=== PATIENT | male | born 1955 | race Caucasian/White ===

== ENCOUNTER 2022-03-18 20:37 | Inpatient (IN) | payer BC, MEDICARE ==
[2022-03-18] MEDS ORDERED: Sodium Chloride 0.9% 10 ML Syringe FLUSH PRN (20:56)
[2022-03-18 21:32] LABS: ESTIMATED GFR 55 mL/min (>60)
[2022-03-18] MEDS ORDERED: Melatonin 3 MG Tab PO PRN (22:17)
[2022-03-18] MEDS ORDERED: Ondansetron 4 MG Tab.DIS PO PRN (22:17)
[2022-03-18] MEDS ORDERED: Pantoprazole 40 MG Vial IV SCH (22:17)
[2022-03-18] MEDS ORDERED: Allopurinol 100 MG Tab PO SCH (22:17)
[2022-03-18] MEDS ORDERED: Docusate Sodium 100 MG Cap PO PRN (22:17)
[2022-03-18] MEDS ORDERED: Acetaminophen 325 MG Tab PO PRN (22:17)
[2022-03-18] MEDS ORDERED: Bisacodyl 5 MG Tab PO PRN (22:17)
[2022-03-18] MEDS: Acetaminophen/HYDROcodone 325-5 MG Tab PO PRN (23:00)
[2022-03-18] MEDS: Dextrose 5%-Lactated Ringers 1,000 ML IV SCH (23:04)
[2022-03-19] MEDS: Acetaminophen/HYDROcodone 325-5 MG Tab PO PRN ×3 (03:14→15:18)
[2022-03-19] MEDS: Dextrose 5%-Lactated Ringers 1,000 ML IV SCH ×2 (07:09→15:15)
[2022-03-19] MEDS: Levothyroxine 50 MCG Tab PO SCH (09:14)
[2022-03-19] MEDS: amLODIPine 5 MG Tab PO SCH (09:52)
[2022-03-19] MEDS: Hydrochlorothiazide 25 MG Tab PO SCH (09:54)
[2022-03-19] MEDS: Losartan 50 MG Tab PO SCH (09:54)
[2022-03-19] MEDS: Metoprolol Succinate 50 MG Tab.ER PO SCH (09:54)
[2022-03-19] MEDS ORDERED: Bupivacaine 0.5%/EPINEPHrine 1:200,000 50 ML MDV ONE (14:51)
[2022-03-19] MEDS ORDERED: fentaNYL 100 MCG/2 ML SDV ONE (15:36)
[2022-03-19] MEDS ORDERED: Propofol 200 MG/20 ML SDV ONE (15:36)
[2022-03-19] MEDS ORDERED: Midazolam 1 MG/ML 2 ML SDV ONE ×2 (15:36→16:26)
[2022-03-19] MEDS ORDERED: ceFAZolin 1 GM Vial ONE ×2 (16:12)
[2022-03-19] MEDS ORDERED: Sodium Chloride 0.9% 10 ML ONE (16:46)
[2022-03-19] MEDS ORDERED: Phenylephrine 1% 10 MG/ML SDV ONE (16:46)
[2022-03-19] MEDS: Acetaminophen 325 MG Tab PO SCH ×2 (18:18→23:30)
[2022-03-19] MEDS: Cyclobenzaprine 10 MG Tab PO PRN (20:46)
[2022-03-19] MEDS: oxyCODONE 5 MG Tab PO PRN (20:46)
[2022-03-19] MEDS: Allopurinol 100 MG Tab PO SCH (20:48)
[2022-03-19] MEDS: Pantoprazole 40 MG Tab.CR PO SCH (20:48)
[2022-03-19] MEDS: HYDROmorphone 1 MG/ML Syringe IVPUSH PRN (21:33)
[2022-03-20] MEDS: HYDROmorphone 1 MG/ML Syringe IVPUSH PRN (03:20)
[2022-03-20] MEDS: Dextrose 5%-Lactated Ringers 1,000 ML IV SCH (04:12)
[2022-03-20] MEDS: Acetaminophen 325 MG Tab PO SCH ×5 (06:33→22:00)
[2022-03-20] MEDS: Levothyroxine 50 MCG Tab PO SCH (08:00)
[2022-03-20] MEDS: oxyCODONE 5 MG Tab PO PRN ×2 (08:00→12:16)
[2022-03-20] MEDS: Losartan 50 MG Tab PO SCH (09:31)
[2022-03-20] MEDS: amLODIPine 5 MG Tab PO SCH (09:31)
[2022-03-20] MEDS: Hydrochlorothiazide 25 MG Tab PO SCH (09:32)
[2022-03-20] MEDS: Metoprolol Succinate 50 MG Tab.ER PO SCH (09:37)
[2022-03-20] MEDS: traMADol 50 MG Tab PO PRN ×2 (13:24→18:13)
[2022-03-20] MEDS: Cyclobenzaprine 10 MG Tab PO PRN (19:43)
[2022-03-20] MEDS: Pantoprazole 40 MG Tab.CR PO SCH (20:10)
[2022-03-20] MEDS: Allopurinol 100 MG Tab PO SCH (20:10)
[2022-03-21] MEDS: Acetaminophen 325 MG Tab PO SCH ×2 (05:12→09:57)
[2022-03-21] MEDS: traMADol 50 MG Tab PO PRN (05:16)
[2022-03-21] MEDS: Cyclobenzaprine 10 MG Tab PO PRN (05:17)
[2022-03-21] MEDS: Levothyroxine 50 MCG Tab PO SCH (07:10)
[2022-03-21] MEDS: oxyCODONE 5 MG Tab PO PRN ×2 (08:28→12:50)
[2022-03-21] MEDS: Losartan 50 MG Tab PO SCH (08:29)
[2022-03-21] MEDS: amLODIPine 5 MG Tab PO SCH (08:29)
[2022-03-21] MEDS: Metoprolol Succinate 50 MG Tab.ER PO SCH (08:29)
[2022-03-21] MEDS: Hydrochlorothiazide 25 MG Tab PO SCH (08:30)
== END 2022-03-21 13:00 | DRG 482 ==
LOC: JP.ED 20:37 → JP.ICU 21:32
PROVIDERS: ADMIT Hospitalist; ATTEND Internal Medicine
PROC: 0QS636Z Reposition Right Upper Femur with Intramedullary Internal Fixation Device, Percutaneous Approach (ICD-10-PCS; principal; 2022-03-19)
DX: S72.001A Fracture of unspecified part of neck of right femur, initial encounter for closed fracture (principal); M1A.0210 Idiopathic chronic gout, right elbow, without tophus (tophi); E03.9 Hypothyroidism, unspecified; I10 Essential (primary) hypertension; F10.20 Alcohol dependence, uncomplicated; Z20.822 Contact with and (suspected) exposure to COVID-19; Z79.890 Hormone replacement therapy; Z79.899 Other long term (current) drug therapy; W10.9XXA Fall (on) (from) unspecified stairs and steps, initial encounter; Y92.008 Other place in unspecified non-institutional (private) residence as the place of occurrence of the external cause
CPT/HCPCS: 36415; 73502; 80053; 84443; 85025; 85610; 85730; 93005; U0002; 76000; 80048; 85018; 85027; 90662; 97110-GP; 97162-GP; 97530-GP; 99285; A9270-GY; C1776; C9113; G0008; J0690; J1170; J2250; J2370; J2704; J3010; J3490; J7121; Q0162

== ENCOUNTER 2022-05-31 11:48 | Inpatient (IN) | payer MEDICARE ==
[2022-05-31 12:47] LABS: ESTIMATED GFR 25 mL/min (>60)
[2022-05-31] MEDS ORDERED: Sodium Chloride 0.9% 1,000 ML IV SCH (13:15)
[2022-05-31 15:13] LABS: CORONAVIRUS COVID-19 NAA NEGATIVE (NEGATIVE)
[2022-05-31] MEDS ORDERED: Melatonin 3 MG Tab PO PRN (15:36)
[2022-05-31] MEDS ORDERED: Acetaminophen 325 MG Tab PO PRN (15:36)
[2022-05-31] MEDS ORDERED: Magnesium Hydroxide 400 MG/5 ML Susp 30 ML Cup PO PRN (15:36)
[2022-05-31] MEDS ORDERED: Ondansetron 4 MG Tab.DIS PO PRN (15:36)
[2022-05-31] MEDS ORDERED: Ondansetron 4 MG/2 ML SDV IV PRN (15:36)
[2022-06-01] MEDS: Levothyroxine 50 MCG Tab PO SCH (07:42)
[2022-06-01] MEDS: Pantoprazole 40 MG Tab.CR PO SCH (07:42)
[2022-06-01] MEDS ORDERED: Non-Formulary Medication 1 Each (Levothyroxine Sodium [Levothyroxine] 50 MCG Capsule) PO SCH (09:00)
[2022-06-01] MEDS: Aspirin 81 MG Tab.EC PO SCH (09:41)
[2022-06-02] MEDS: Aspirin 81 MG Tab.EC PO SCH (08:07)
[2022-06-02] MEDS: Levothyroxine 50 MCG Tab PO SCH (08:07)
[2022-06-02] MEDS: Pantoprazole 40 MG Tab.CR PO SCH (08:07)
[2022-06-03] MEDS ORDERED: Allopurinol 100 MG Tab PO SCH (10:00)
== END 2022-06-02 11:05 | disposition home or self-care (01) | DRG 312 ==
LOC: JP.ED 11:48 → JP.MS 14:14
PROVIDERS: ADMIT Internal Medicine; ATTEND Internal Medicine
DX: I95.2 Hypotension due to drugs (principal); N17.9 Acute kidney failure, unspecified; T46.5X5A Adverse effect of other antihypertensive drugs, initial encounter; I95.9 Hypotension, unspecified; E86.0 Dehydration; Z20.822 Contact with and (suspected) exposure to COVID-19; I10 Essential (primary) hypertension; E03.9 Hypothyroidism, unspecified; Z79.82 Long term (current) use of aspirin; M10.9 Gout, unspecified; Z79.890 Hormone replacement therapy; Z90.49 Acquired absence of other specified parts of digestive tract; F12.90 Cannabis use, unspecified, uncomplicated; Z79.899 Other long term (current) drug therapy
CPT/HCPCS: 0241U; 36415; 80048; 80053; 81001; 84443; 85025; 93010; 96360; 96361; 99222; 99232; 99238; 99284; 99285-25; A9270-GY; J7030

== ENCOUNTER 2022-10-29 10:55 | Emergency (ER) | payer MEDICARE ==
[2022-10-29] MEDS ORDERED: Ondansetron 4 MG/2 ML SDV IVPUSH ONE (11:30)
[2022-10-29] MEDS ORDERED: Sodium Chloride 0.9% 10 ML Syringe FLUSH PRN (11:30)
[2022-10-29] MEDS ORDERED: Sodium Chloride 0.9% 1,000 ML IV ONE (11:30)
[2022-10-29 11:49] LABS: BASOPHILS ABSOLUTE AUTO 0.03 K/uL (0.00-0.10); BASOPHILS PERCENT AUTO 0.4 % (0.1-1.3); EOSINOPHILS ABSOLUTE AUTO 0.03 K/uL (0.00-0.40); EOSINOPHILS PERCENT AUTO 0.4 % (0.0-5.4); HEMOGLOBIN 15.2 g/dL (12.9-16.9); IMMATURE GRAN PERCENT AUTO 0.3 % (0.0-0.7); LYMPHOCYTES PERCENT AUTO 30.9 % (11.4-47.7); MEAN CORPUSCULAR HEMOGLOBIN 36.4 pg (31.6-35.5); MEAN CORPUSCULAR HGB CONC 36.2 g/dL (31.6-35.5); MEAN CORPUSCULAR VOLUME 100.5 fL (81.4-99.0); MONOCYTES ABSOLUTE AUTO 0.59 K/uL (0.20-0.90); MONOCYTES PERCENT AUTO 7.9 % (3.3-12.6); NEUTROPHILS ABSOLUTE AUTO 4.48 K/uL (1.0-7.6); NEUTROPHILS PERCENT AUTO 60.1 % (40.0-78.1); PLATELET COUNT,PLT 156 K/uL (130-375); RED BLOOD CELL COUNT 4.18 M/uL (4.14-5.76); WHITE BLOOD CELL COUNT,WBC 7.5 K/uL (3.2-11.0)
[2022-10-29 11:51] LABS: IMMATURE GRAN ABSOLUTE AUTO 0.02 K/uL (0.00-0.23)
[2022-10-29 12:09] LABS: A/G RATIO 0.9 (1.2-2.2); ALANINE AMINOTRANSFERASE,ALT 98 U/L (12-78); ALBUMIN 2.9 g/dL (3.4-5.0); ALKALINE PHOSPHATASE 160 U/L (46-116); ASPARTATE AMNIOTRANSFERASE,AST 138 U/L (15-37); BILIRUBIN TOTAL 2.2 mg/dL (0.2-1.0); BLOOD UREA NITROGEN,BUN 11 mg/dL (7-18); CALCIUM 8.8 mg/dL (8.5-10.1); CARBON DIOXIDE,CO2 17 mmol/L (21-32); CHLORIDE,CL 98 mmol/L (100-108); CREATININE 1.3 mg/dL (0.8-1.3); EST CRCL DRUG DOSING (CG) 55.14 mL/min; ESTIMATED GFR 60 mL/min (>60); GLUCOSE RANDOM 73 mg/dL (74-106); POTASSIUM,K 3.4 mmol/L (3.6-5.2); PROTEIN TOTAL,TP 6.1 g/dL (6.4-8.2); SODIUM,NA 135 mmol/L (140-148)
[2022-10-29 12:10] LABS: ANION GAP 23.4 mmol/L (5.0-14.0)
[2022-10-29] MEDS ORDERED: Sodium Chloride 0.9% 10 ML SDV FLUSH ONE (13:12)
[2022-10-29] MEDS ORDERED: Iopamidol 612 MG/ML 100 ML Bottle IV PRN (13:12)
[2022-10-29] MEDS ORDERED: Sodium Chloride 0.9% 100 ML IV SCH (13:15)
== END 2022-10-29 15:15 | disposition home or self-care (01) ==
LOC: JP.ED 10:55
DX: R11.2 Nausea with vomiting, unspecified (principal); I10 Essential (primary) hypertension; M10.9 Gout, unspecified; E03.9 Hypothyroidism, unspecified; Z79.899 Other long term (current) drug therapy
CPT/HCPCS: 36415; 74177; 80053; 83690; 85025; 86140; 96361; 96374; 99284; J2405; J3490; J7030; Q9967

== ENCOUNTER 2022-11-28 08:58 | Emergency (ER) | payer MEDICARE ==
[2022-11-28] MEDS ORDERED: Sodium Chloride 0.9% 1,000 ML IV ONE (09:14)
[2022-11-28 09:37] LABS: BASE EXCESS VENOUS -8.2 mm/L; BICARBONATE,VENOUS 15.8 mmol/L; CARBOXYHEMOGLOBIN 2.7 % (0.0-1.6); HEMOGLOBIN 10.3 g/dL (12.9-16.9); MEAN CORPUSCULAR HEMOGLOBIN 34.4 pg (31.6-35.5); MEAN CORPUSCULAR HGB CONC 34.3 g/dL (31.6-35.5); MEAN CORPUSCULAR VOLUME 100.3 fL (81.4-99.0); METHEMOGLOBIN 0.9 %; O2 SATURATION VENOUS 49.5; OXYHEMOGLOBIN 47.7 %; PH,VENOUS 7.356 (7.350-7.450); RED BLOOD CELL COUNT 2.99 M/uL (4.14-5.76); TOTAL HEMOGLOBIN 10.8 g/dL (13.5-18.0); WHITE BLOOD CELL COUNT,WBC 5.2 K/uL (3.2-11.0)
[2022-11-28 09:39] LABS: PO2 VENOUS 30.7 mm/Hg
[2022-11-28] MEDS ORDERED: Sodium Chloride 0.9% 1,000 ML IV SCH (10:00)
[2022-11-28 10:09] LABS: A/G RATIO 1.1 (1.2-2.2); ALANINE AMINOTRANSFERASE,ALT 40 U/L (12-78); ALBUMIN 2.5 g/dL (3.4-5.0); ALKALINE PHOSPHATASE 97 U/L (46-116); ASPARTATE AMNIOTRANSFERASE,AST 53 U/L (15-37); BILIRUBIN TOTAL 1.6 mg/dL (0.2-1.0); BLOOD UREA NITROGEN,BUN 8 mg/dL (7-18); CALCIUM 8.2 mg/dL (8.5-10.1); CARBON DIOXIDE,CO2 20 mmol/L (21-32); CHLORIDE,CL 104 mmol/L (100-108); CREATININE 1.2 mg/dL (0.8-1.3); EST CRCL DRUG DOSING (CG) 57.49 mL/min; ESTIMATED GFR 66 mL/min (>60); GLUCOSE RANDOM 67 mg/dL (74-106); POTASSIUM,K 3.7 mmol/L (3.6-5.2); PROTEIN TOTAL,TP 4.8 g/dL (6.4-8.2); SODIUM,NA 139 mmol/L (140-148)
[2022-11-28 10:13] LABS: ANION GAP 18.7 mmol/L (5.0-14.0)
== END 2022-11-28 11:35 | disposition home or self-care (01) ==
LOC: JP.ED 08:58
DX: E86.0 Dehydration (principal); I10 Essential (primary) hypertension; E03.9 Hypothyroidism, unspecified; R00.0 Tachycardia, unspecified; Z79.899 Other long term (current) drug therapy
CPT/HCPCS: 36415; 71045; 80053; 80307; 82803; 83605; 83690; 84145; 84443; 84484; 85027; 93005; 96360; 96361; 99284; J7030; 93010

== ENCOUNTER 2022-12-08 21:14 | Emergency (ER) | payer MEDICARE ==
[2022-12-08 21:27] LABS: BASOPHILS ABSOLUTE AUTO 0.03 K/uL (0.00-0.10); BASOPHILS PERCENT AUTO 0.5 % (0.1-1.3); EOSINOPHILS ABSOLUTE AUTO 0.13 K/uL (0.00-0.40); EOSINOPHILS PERCENT AUTO 2.1 % (0.0-5.4); HEMATOCRIT 29.1 % (38.4-49.7); HEMOGLOBIN 10.1 g/dL (12.9-16.9); IMMATURE GRAN ABSOLUTE AUTO 0.02 K/uL (0.00-0.23); IMMATURE GRAN PERCENT AUTO 0.3 % (0.0-0.7); LYMPHOCYTES PERCENT AUTO 26.3 % (11.4-47.7); MEAN CORPUSCULAR HEMOGLOBIN 33.9 pg (31.6-35.5); MEAN CORPUSCULAR HGB CONC 34.7 g/dL (31.6-35.5); MEAN CORPUSCULAR VOLUME 97.7 fL (81.4-99.0); MONOCYTES ABSOLUTE AUTO 0.62 K/uL (0.20-0.90); MONOCYTES PERCENT AUTO 10.2 % (3.3-12.6); NEUTROPHILS ABSOLUTE AUTO 3.69 K/uL (1.0-7.6); NEUTROPHILS PERCENT AUTO 60.6 % (40.0-78.1); PLATELET COUNT,PLT 136 K/uL (130-375); RED BLOOD CELL COUNT 2.98 M/uL (4.14-5.76); WHITE BLOOD CELL COUNT,WBC 6.1 K/uL (3.2-11.0)
[2022-12-08] MEDS ORDERED: Sodium Chloride 0.9% 1,000 ML IV SCH ×2 (21:45→23:00)
[2022-12-08 21:51] LABS: ALANINE AMINOTRANSFERASE,ALT 29 U/L (12-78); ALBUMIN 2.4 g/dL (3.4-5.0); ALKALINE PHOSPHATASE 125 U/L (46-116); ASPARTATE AMNIOTRANSFERASE,AST 38 U/L (15-37); BILIRUBIN TOTAL 1.5 mg/dL (0.2-1.0); BLOOD UREA NITROGEN,BUN 10 mg/dL (7-18); CALCIUM 8.1 mg/dL (8.5-10.1); CARBON DIOXIDE,CO2 26 mmol/L (21-32); CHLORIDE,CL 105 mmol/L (100-108); CREATININE 1.4 mg/dL (0.8-1.3); EST CRCL DRUG DOSING (CG) 49.27 mL/min; ESTIMATED GFR 55 mL/min (>60); GLUCOSE RANDOM 96 mg/dL (74-106); POTASSIUM,K 3.2 mmol/L (3.6-5.2); PROTEIN TOTAL,TP 4.9 g/dL (6.4-8.2); SODIUM,NA 141 mmol/L (140-148); TROPONIN I HIGH SENSITIVITY 12.4 pg/mL (<=60.3)
[2022-12-08 21:52] LABS: ANION GAP 13.2 mmol/L (5.0-14.0)
[2022-12-08] MEDS ORDERED: Potassium Chloride 20 MEQ Tab.ER PO ONE (21:55)
== END 2022-12-09 00:23 | disposition home or self-care (01) ==
LOC: JP.ED 21:14
DX: R55 Syncope and collapse (principal); E86.0 Dehydration; N28.9 Disorder of kidney and ureter, unspecified; E87.6 Hypokalemia; I95.9 Hypotension, unspecified; E03.9 Hypothyroidism, unspecified; Z20.822 Contact with and (suspected) exposure to COVID-19
CPT/HCPCS: 36415; 80053; 84443; 84484; 85025; 86140; 93005; 93010; 96360; 99284; A9270; J7030; U0002

== ENCOUNTER 2023-03-28 15:50 | Emergency (ER) | payer MEDICARE ==
[2023-03-28 16:12] LABS: BASOPHILS ABSOLUTE AUTO 0.03 K/uL (0.00-0.10); BASOPHILS PERCENT AUTO 0.6 % (0.1-1.3); EOSINOPHILS ABSOLUTE AUTO 0.04 K/uL (0.00-0.40); EOSINOPHILS PERCENT AUTO 0.7 % (0.0-5.4); HEMATOCRIT 24.9 % (38.4-49.7); HEMOGLOBIN 8.5 g/dL (12.9-16.9); IMMATURE GRAN PERCENT AUTO 0.4 % (0.0-0.7); LYMPHOCYTES ABSOLUTE AUTO 1.61 K/uL (0.8-3.3); MEAN CORPUSCULAR HEMOGLOBIN 33.6 pg (31.6-35.5); MEAN CORPUSCULAR HGB CONC 34.1 g/dL (31.6-35.5); MEAN CORPUSCULAR VOLUME 98.4 fL (81.4-99.0); MONOCYTES ABSOLUTE AUTO 0.47 K/uL (0.20-0.90); MONOCYTES PERCENT AUTO 8.8 % (3.3-12.6); NEUTROPHILS ABSOLUTE AUTO 3.19 K/uL (1.0-7.6); NEUTROPHILS PERCENT AUTO 59.5 % (40.0-78.1); PLATELET COUNT,PLT 168 K/uL (130-375); RED BLOOD CELL COUNT 2.53 M/uL (4.14-5.76); WHITE BLOOD CELL COUNT,WBC 5.4 K/uL (3.2-11.0)
[2023-03-28 16:14] LABS: IMMATURE GRAN ABSOLUTE AUTO 0.02 K/uL (0.00-0.23)
[2023-03-28 16:35] LABS: ALANINE AMINOTRANSFERASE,ALT 47 U/L (12-78); ALBUMIN 2.1 g/dL (3.4-5.0); ALKALINE PHOSPHATASE 107 U/L (46-116); ANION GAP 11.7 mmol/L (5.0-14.0); ASPARTATE AMNIOTRANSFERASE,AST 71 U/L (15-37); BILIRUBIN TOTAL 1.4 mg/dL (0.2-1.0); BLOOD UREA NITROGEN,BUN 6 mg/dL (7-18); CALCIUM 7.7 mg/dL (8.5-10.1); CARBON DIOXIDE,CO2 22 mmol/L (21-32); CHLORIDE,CL 106 mmol/L (100-108); CREATININE 0.9 mg/dL (0.8-1.3); ESTIMATED GFR 94 mL/min (>60); GLUCOSE RANDOM 100 mg/dL (74-106); POTASSIUM,K 3.8 mmol/L (3.6-5.2); PROTEIN TOTAL,TP 4.3 g/dL (6.4-8.2); SODIUM,NA 140 mmol/L (140-148)
[2023-03-28 17:28] LABS: TSH ULTRASENSITIVE 0.024 uIU/mL (0.358-3.740)
[2023-03-28 17:34] LABS: MAGNESIUM 1.1 mg/dL (1.8-2.4)
[2023-03-28] MEDS ORDERED: Sodium Chloride 0.9% 1,000 ML IV ONE (17:34)
[2023-03-28 20:17] LABS: APPEARANCE,URINE CLEAR (CLEAR); BILIRUBIN,URINE NEGATIVE (NEGATIVE); COLOR,URINE YELLOW (YELLOW); GLUCOSE,URINE NEGATIVE (NEGATIVE); KETONES,URINE NEGATIVE (NEGATIVE); LEUKOCYTE ESTERASE,URINE NEGATIVE (NEGATIVE); NITRITE,URINE NEGATIVE (NEGATIVE); OCCULT BLOOD,URINE NEGATIVE (NEGATIVE); PROTEIN,URINE NEGATIVE (NEGATIVE)
[2023-03-28 20:20] LABS: AMPHETAMINES SCREEN, URINE NEGATIVE (NEGATIVE); BARBITURATE SCREEN,URINE NEGATIVE (NEGATIVE); BENZODIAZEPINES SCREEN,URINE NEGATIVE (NEGATIVE); METHAMPHETAMINES SCREEN, URINE NEGATIVE (NEGATIVE)
[2023-03-28 20:21] LABS: METHADONE SCREEN, URINE NEGATIVE (NEGATIVE); OXYCODONE SCREEN,URINE NEGATIVE (NEGATIVE); PROPOXYPHENE SCREEN,URINE NEGATIVE (NEGATIVE); THC SCREEN,URINE 50 NG/ML PRESUMPTIVE POSITIVE (NEGATIVE)
[2023-03-28 20:22] LABS: AMORPHOUS SEDIMENT,URINE NOT SEEN; BACTERIA,URINE RARE; EPITHELIAL CELLS,URINE RARE; MUCUS,URINE RARE; RBC,URINE 0-5 (0-5); WBC,URINE 0-5 (0-5)
== END 2023-03-29 09:42 | disposition home or self-care (01) ==
LOC: JP.ED 15:50
DX: E86.0 Dehydration (principal); D64.9 Anemia, unspecified; I10 Essential (primary) hypertension; K21.9 Gastro-esophageal reflux disease without esophagitis; E03.9 Hypothyroidism, unspecified; Z86.16 Personal history of COVID-19; M10.9 Gout, unspecified; Z79.899 Other long term (current) drug therapy
CPT/HCPCS: 36415; 71045; 80053; 80305; 80307; 81001; 83605; 83690; 83735; 83880; 84145; 84443; 84484; 85025; 93005; 96360; 99285; J7030

== ENCOUNTER 2023-04-22 09:19 | Emergency (ER) | payer MEDICARE ==
[2023-04-22 10:08] LABS: BASOPHILS PERCENT AUTO 0.1 % (0.1-1.3); EOSINOPHILS PERCENT AUTO 0.1 % (0.0-5.4); HEMATOCRIT 30.4 % (38.4-49.7); HEMOGLOBIN 10.7 g/dL (12.9-16.9); IMMATURE GRAN ABSOLUTE AUTO 0.07 K/uL (0.00-0.23); IMMATURE GRAN PERCENT AUTO 0.5 % (0.0-0.7); LYMPHOCYTES ABSOLUTE AUTO 1.66 K/uL (0.8-3.3); LYMPHOCYTES PERCENT AUTO 11.7 % (11.4-47.7); MEAN CORPUSCULAR HEMOGLOBIN 32.8 pg (31.6-35.5); MEAN CORPUSCULAR HGB CONC 35.2 g/dL (31.6-35.5); MEAN CORPUSCULAR VOLUME 93.3 fL (81.4-99.0); MONOCYTES ABSOLUTE AUTO 0.77 K/uL (0.20-0.90); MONOCYTES PERCENT AUTO 5.4 % (3.3-12.6); NEUTROPHILS ABSOLUTE AUTO 11.68 K/uL (1.0-7.6); NEUTROPHILS PERCENT AUTO 82.2 % (40.0-78.1); PLATELET COUNT,PLT 173 K/uL (130-375); RED BLOOD CELL COUNT 3.26 M/uL (4.14-5.76); WHITE BLOOD CELL COUNT,WBC 14.2 K/uL (3.2-11.0)
[2023-04-22] MEDS: Sodium Chloride 0.9% 1,000 ML IV SCH ×2 (10:08→13:56)
[2023-04-22 10:13] LABS: A/G RATIO 0.5 (1.2-2.2); ALANINE AMINOTRANSFERASE,ALT 32 U/L (12-78); ALBUMIN 1.8 g/dL (3.4-5.0); ALKALINE PHOSPHATASE 212 U/L (46-116); ASPARTATE AMNIOTRANSFERASE,AST 84 U/L (15-37); BILIRUBIN TOTAL 1.7 mg/dL (0.2-1.0); BLOOD UREA NITROGEN,BUN 19 mg/dL (7-18); CALCIUM 7.1 mg/dL (8.5-10.1); CARBON DIOXIDE,CO2 24 mmol/L (21-32); CHLORIDE,CL 103 mmol/L (100-108); CREATININE 1.1 mg/dL (0.8-1.3); EST CRCL DRUG DOSING (CG) 54.35 mL/min; ESTIMATED GFR 74 mL/min (>60); GLUCOSE RANDOM 72 mg/dL (74-106); POTASSIUM,K 3.6 mmol/L (3.6-5.2); PROTEIN TOTAL,TP 5.5 g/dL (6.4-8.2); SODIUM,NA 138 mmol/L (140-148)
[2023-04-22 10:16] LABS: ANION GAP 14.6 mmol/L (5.0-14.0)
[2023-04-22 10:17] LABS: BASOPHILS ABSOLUTE AUTO 0.02 K/uL (0.00-0.10); EOSINOPHILS ABSOLUTE AUTO 0.02 K/uL (0.00-0.40)
[2023-04-22] MEDS ORDERED: Iopamidol 612 MG/ML 100 ML Bottle IV ONE (12:28)
[2023-04-22] MEDS ORDERED: Sodium Chloride 0.9% 80 ML IV SCH (12:30)
[2023-04-22] MEDS ORDERED: Sodium Chloride 0.9% 1,000 ML IV SCH (13:00)
[2023-04-22 15:25] LABS: APPEARANCE,URINE CLOUDY (CLEAR); BILIRUBIN,URINE SMALL (NEGATIVE); COLOR,URINE YELLOW (YELLOW); GLUCOSE,URINE NEGATIVE (NEGATIVE); KETONES,URINE NEGATIVE (NEGATIVE); LEUKOCYTE ESTERASE,URINE MODERATE (NEGATIVE); NITRITE,URINE POSITIVE (NEGATIVE); OCCULT BLOOD,URINE SMALL (NEGATIVE); PROTEIN,URINE 100 mg/dL (NEGATIVE)
[2023-04-22 15:32] LABS: AMORPHOUS SEDIMENT,URINE NOT SEEN; BACTERIA,URINE MODERATE; EPITHELIAL CELLS,URINE RARE; MUCUS,URINE NOT SEEN; RBC,URINE 0-5 (0-5); WBC,URINE >100 (0-5)
[2023-04-22] MEDS ORDERED: cefTRIAXone 2 GM in Sodium Chloride 0.9% 50 ML IV ONE (16:21)
== END 2023-04-22 18:36 ==
LOC: JP.ED 09:19
DX: E86.0 Dehydration (principal); I82.3 Embolism and thrombosis of renal vein; R18.8 Other ascites; I10 Essential (primary) hypertension; K21.9 Gastro-esophageal reflux disease without esophagitis; Z90.49 Acquired absence of other specified parts of digestive tract; Z86.16 Personal history of COVID-19; Z79.899 Other long term (current) drug therapy
CPT/HCPCS: 36415; 71045; 74177; 80053; 81001; 82272; 83605; 84443; 85025; 86140; 87040; 87086; 87088; 87186; 87493; 96361; 96365; 99285; J0696; J3490; J7030; Q9967

== ENCOUNTER 2023-06-04 15:18 | Inpatient (IN) | payer MEDICARE ==
[2023-06-04 15:34] LABS: BASOPHILS ABSOLUTE AUTO 0.03 K/uL (0.00-0.10); BASOPHILS PERCENT AUTO 0.3 % (0.1-1.3); EOSINOPHILS ABSOLUTE AUTO 0.04 K/uL (0.00-0.40); EOSINOPHILS PERCENT AUTO 0.4 % (0.0-5.4); HEMATOCRIT 33.2 % (38.4-49.7); HEMOGLOBIN 10.9 g/dL (12.9-16.9); IMMATURE GRAN PERCENT AUTO 0.2 % (0.0-0.7); LYMPHOCYTES ABSOLUTE AUTO 2.38 K/uL (0.8-3.3); LYMPHOCYTES PERCENT AUTO 25.1 % (11.4-47.7); MEAN CORPUSCULAR HEMOGLOBIN 31.1 pg (31.6-35.5); MEAN CORPUSCULAR HGB CONC 32.8 g/dL (31.6-35.5); MEAN CORPUSCULAR VOLUME 94.9 fL (81.4-99.0); MONOCYTES ABSOLUTE AUTO 0.59 K/uL (0.20-0.90); MONOCYTES PERCENT AUTO 6.2 % (3.3-12.6); NEUTROPHILS ABSOLUTE AUTO 6.43 K/uL (1.0-7.6); NEUTROPHILS PERCENT AUTO 67.8 % (40.0-78.1); PLATELET COUNT,PLT 167 K/uL (130-375); WHITE BLOOD CELL COUNT,WBC 9.5 K/uL (3.2-11.0)
[2023-06-04 15:37] LABS: IMMATURE GRAN ABSOLUTE AUTO 0.02 K/uL (0.00-0.23)
[2023-06-04 15:50] LABS: LACTIC ACID 2.6 mmol/L (0.4-2.0)
[2023-06-04 15:53] LABS: A/G RATIO 0.5 (1.2-2.2); ALANINE AMINOTRANSFERASE,ALT 24 U/L (12-78); ALBUMIN 1.7 g/dL (3.4-5.0); ALKALINE PHOSPHATASE 123 U/L (46-116); ASPARTATE AMNIOTRANSFERASE,AST 51 U/L (15-37); BILIRUBIN TOTAL 0.6 mg/dL (0.2-1.0); BLOOD UREA NITROGEN,BUN 9 mg/dL (7-18); C-REACTIVE PROTEIN 3.86 mg/dL (<0.50); CALCIUM 7.3 mg/dL (8.5-10.1); CARBON DIOXIDE,CO2 24 mmol/L (21-32); CHLORIDE,CL 104 mmol/L (100-108); CREATININE 1.2 mg/dL (0.8-1.3); EST CRCL DRUG DOSING (CG) 58.92 mL/min; ESTIMATED GFR 66 mL/min (>60); GLUCOSE RANDOM 88 mg/dL (74-106)
[2023-06-04 15:57] LABS: ANION GAP 17.7 mmol/L (5.0-14.0); SODIUM,NA 143 mmol/L (140-148)
[2023-06-04 15:58] LABS: POTASSIUM,K 2.7 mmol/L (3.6-5.2)
[2023-06-04] MEDS: Sodium Chloride 0.9% 10 ML Syringe FLUSH PRN (16:17)
[2023-06-04] MEDS: Potassium Chloride 20 MEQ Tab.ER PO ONE (16:28)
[2023-06-04] MEDS: Potassium Chloride 10 MEQ in Premix Bag 1 BAG IV ONE ×2 (16:30→17:18)
[2023-06-04 17:06] LABS: CORONAVIRUS COVID-19 NAA NEGATIVE (NEGATIVE); INFLUENZA A NAA NEGATIVE (NEGATIVE); INFLUENZA B NAA NEGATIVE (NEGATIVE); RESPIRATORY SYNCYTIAL VIR NAA NEGATIVE (NEGATIVE)
[2023-06-04] MEDS: Doxycycline 100 MG Cap PO SCH (17:18)
[2023-06-04] MEDS: cefTRIAXone 2 GM in Sodium Chloride 0.9% 50 ML IV ONE (17:19)
[2023-06-04] MEDS: Magnesium Sulfate/Water 2 GM in Premix Bag 1 BAG IV ONE (17:57)
[2023-06-04] MEDS ORDERED: Cyclobenzaprine 10 MG Tab PO PRN (18:43)
[2023-06-04] MEDS ORDERED: LORazepam 2 MG/ML SDV IVPUSH PRN (18:44)
[2023-06-04] MEDS ORDERED: Magnesium Hydroxide 400 MG/5 ML Susp 30 ML Cup PO PRN (18:44)
[2023-06-04] MEDS ORDERED: Sennosides/Docusate Sodium 50-8.6 MG Tab PO PRN (18:44)
[2023-06-04] MEDS ORDERED: Acetaminophen 325 MG Tab PO PRN (18:44)
[2023-06-04] MEDS ORDERED: FLU (Fluad Quad) 2023-24(65UP)/MF59C/PF 60 MCG/0.5 ML Syringe IM ONE (20:00)
[2023-06-05 00:04] LABS: APPEARANCE,URINE CLOUDY (CLEAR); BILIRUBIN,URINE SMALL (NEGATIVE); COLOR,URINE BROWN (YELLOW); GLUCOSE,URINE NEGATIVE (NEGATIVE); KETONES,URINE NEGATIVE (NEGATIVE); LEUKOCYTE ESTERASE,URINE SMALL (NEGATIVE); NITRITE,URINE POSITIVE (NEGATIVE); OCCULT BLOOD,URINE MODERATE (NEGATIVE); PROTEIN,URINE 100 mg/dL (NEGATIVE); UROBILINOGEN,URINE 0.2 EU/dL (0.2-1.0)
[2023-06-05 00:06] LABS: WBC,URINE PACKED (0-5)
[2023-06-05 05:51] LABS: HEMATOCRIT 30.6 % (38.4-49.7); MEAN CORPUSCULAR HEMOGLOBIN 30.9 pg (31.6-35.5); MEAN CORPUSCULAR HGB CONC 32.7 g/dL (31.6-35.5); MEAN CORPUSCULAR VOLUME 94.4 fL (81.4-99.0); RED BLOOD CELL COUNT 3.24 M/uL (4.14-5.76); WHITE BLOOD CELL COUNT,WBC 9.1 K/uL (3.2-11.0)
[2023-06-05 06:04] LABS: A/G RATIO 0.5 (1.2-2.2); ALANINE AMINOTRANSFERASE,ALT 22 U/L (12-78); ALBUMIN 1.6 g/dL (3.4-5.0); ALKALINE PHOSPHATASE 113 U/L (46-116); ASPARTATE AMNIOTRANSFERASE,AST 47 U/L (15-37); BILIRUBIN TOTAL 0.5 mg/dL (0.2-1.0); BLOOD UREA NITROGEN,BUN 9 mg/dL (7-18); C-REACTIVE PROTEIN 3.95 mg/dL (<0.50); CALCIUM 7.2 mg/dL (8.5-10.1); CARBON DIOXIDE,CO2 24 mmol/L (21-32); CHLORIDE,CL 110 mmol/L (100-108); CREATININE 1.1 mg/dL (0.8-1.3); EST CRCL DRUG DOSING (CG) 64.27 mL/min; ESTIMATED GFR 73 mL/min (>60); GLUCOSE RANDOM 85 mg/dL (74-106); POTASSIUM,K 3.1 mmol/L (3.6-5.2); PROTEIN TOTAL,TP 4.7 g/dL (6.4-8.2); SODIUM,NA 144 mmol/L (140-148)
[2023-06-05 06:09] LABS: ANION GAP 13.1 mmol/L (5.0-14.0)
[2023-06-05] MEDS: Pantoprazole 40 MG Tab.CR PO SCH (07:49)
[2023-06-05] MEDS: Levothyroxine 50 MCG Tab PO SCH (07:50)
[2023-06-05] MEDS: Enoxaparin 40 MG/0.4 ML Syringe SUBCUT SCH (08:52)
[2023-06-05] MEDS: Allopurinol 100 MG Tab PO SCH (08:52)
[2023-06-05] MEDS: cefTRIAXone 2 GM in Sodium Chloride 0.9% 50 ML IV SCH (08:52)
[2023-06-05] MEDS: Losartan 50 MG Tab PO SCH (08:55)
[2023-06-05] MEDS: amLODIPine 5 MG Tab PO SCH (08:56)
[2023-06-05] MEDS ORDERED: Doxycycline 100 MG in Sodium Chloride 0.9% 100 ML IV SCH (09:00)
[2023-06-05] MEDS: Doxycycline 100 MG in Sodium Chloride 0.9% 100 ML IV SCH (17:28)
[2023-06-05] MEDS: Magnesium Sulfate/Water 2 GM in Premix Bag 1 BAG IV ONE (18:41)
[2023-06-05] MEDS: Potassium Chloride 20 MEQ Tab.ER PO SCH (19:54)
[2023-06-06 06:21] LABS: HEMATOCRIT 29.5 % (38.4-49.7); MEAN CORPUSCULAR HEMOGLOBIN 31.6 pg (31.6-35.5); MEAN CORPUSCULAR HGB CONC 33.9 g/dL (31.6-35.5); MEAN CORPUSCULAR VOLUME 93.4 fL (81.4-99.0); RED BLOOD CELL COUNT 3.16 M/uL (4.14-5.76); WHITE BLOOD CELL COUNT,WBC 7.4 K/uL (3.2-11.0)
[2023-06-06 06:46] LABS: A/G RATIO 0.5 (1.2-2.2); ALANINE AMINOTRANSFERASE,ALT 24 U/L (12-78); ALBUMIN 1.7 g/dL (3.4-5.0); ALKALINE PHOSPHATASE 144 U/L (46-116); ASPARTATE AMNIOTRANSFERASE,AST 54 U/L (15-37); BILIRUBIN TOTAL 0.3 mg/dL (0.2-1.0); BLOOD UREA NITROGEN,BUN 9 mg/dL (7-18); CALCIUM 7.2 mg/dL (8.5-10.1); CARBON DIOXIDE,CO2 23 mmol/L (21-32); CHLORIDE,CL 109 mmol/L (100-108); ESTIMATED GFR 82 mL/min (>60); GLUCOSE RANDOM 70 mg/dL (74-106); POTASSIUM,K 3.8 mmol/L (3.6-5.2); PROTEIN TOTAL,TP 4.9 g/dL (6.4-8.2); SODIUM,NA 142 mmol/L (140-148); TSH ULTRASENSITIVE 10.999 uIU/mL (0.358-3.740)
[2023-06-06 06:49] LABS: ANION GAP 13.8 mmol/L (5.0-14.0)
[2023-06-06] MEDS: Furosemide 20 MG/2 ML VIAL IVPUSH SCH (09:03)
[2023-06-06] MEDS: FLU (Fluad Quad) 2023-24(65UP)/MF59C/PF 60 MCG/0.5 ML Syringe IM ONE (10:22)
[2023-06-07 05:45] LABS: HEMATOCRIT 29.2 % (38.4-49.7); HEMOGLOBIN 9.6 g/dL (12.9-16.9); MEAN CORPUSCULAR HEMOGLOBIN 30.9 pg (31.6-35.5); MEAN CORPUSCULAR HGB CONC 32.9 g/dL (31.6-35.5); MEAN CORPUSCULAR VOLUME 93.9 fL (81.4-99.0); RED BLOOD CELL COUNT 3.11 M/uL (4.14-5.76); WHITE BLOOD CELL COUNT,WBC 6.5 K/uL (3.2-11.0)
[2023-06-07 06:16] LABS: A/G RATIO 0.5 (1.2-2.2); ALANINE AMINOTRANSFERASE,ALT 26 U/L (12-78); ALBUMIN 1.7 g/dL (3.4-5.0); ALKALINE PHOSPHATASE 148 U/L (46-116); ASPARTATE AMNIOTRANSFERASE,AST 58 U/L (15-37); BILIRUBIN TOTAL 0.4 mg/dL (0.2-1.0); BLOOD UREA NITROGEN,BUN 9 mg/dL (7-18); C-REACTIVE PROTEIN 3.68 mg/dL (<0.50); CALCIUM 7.5 mg/dL (8.5-10.1); CARBON DIOXIDE,CO2 23 mmol/L (21-32); CHLORIDE,CL 110 mmol/L (100-108); ESTIMATED GFR 82 mL/min (>60); GLUCOSE RANDOM 65 mg/dL (74-106); MAGNESIUM 1.3 mg/dL (1.8-2.4); POTASSIUM,K 4.6 mmol/L (3.6-5.2); PRO B-TYPE NATRIUR PEPT,BNPPRO 1317 pg/mL (5-125); SODIUM,NA 142 mmol/L (140-148)
[2023-06-07 06:18] LABS: ANION GAP 13.6 mmol/L (5.0-14.0)
[2023-06-07] MEDS: Levothyroxine 100 MCG Tab PO SCH (08:37)
[2023-06-07] MEDS: Magnesium Sulfate/Water 2 GM in Premix Bag 1 BAG IV ONE (09:54)
[2023-06-07] MEDS: Acetaminophen/HYDROcodone 325-5 MG Tab PO PRN (16:38)
[2023-06-08 06:04] LABS: HEMATOCRIT 28.1 % (38.4-49.7); HEMOGLOBIN 9.2 g/dL (12.9-16.9); MEAN CORPUSCULAR HEMOGLOBIN 30.8 pg (31.6-35.5); MEAN CORPUSCULAR HGB CONC 32.7 g/dL (31.6-35.5); RED BLOOD CELL COUNT 2.99 M/uL (4.14-5.76); WHITE BLOOD CELL COUNT,WBC 5.9 K/uL (3.2-11.0)
[2023-06-08 06:28] LABS: A/G RATIO 0.5 (1.2-2.2); ALANINE AMINOTRANSFERASE,ALT 30 U/L (12-78); ALBUMIN 1.6 g/dL (3.4-5.0); ALKALINE PHOSPHATASE 155 U/L (46-116); ASPARTATE AMNIOTRANSFERASE,AST 62 U/L (15-37); BILIRUBIN TOTAL 0.3 mg/dL (0.2-1.0); BLOOD UREA NITROGEN,BUN 9 mg/dL (7-18); C-REACTIVE PROTEIN 3.09 mg/dL (<0.50); CALCIUM 7.7 mg/dL (8.5-10.1); CARBON DIOXIDE,CO2 23 mmol/L (21-32); CHLORIDE,CL 107 mmol/L (100-108); CREATININE 0.9 mg/dL (0.8-1.3); EST CRCL DRUG DOSING (CG) 78.56 mL/min; ESTIMATED GFR 93 mL/min (>60); GLUCOSE RANDOM 67 mg/dL (74-106); POTASSIUM,K 4.9 mmol/L (3.6-5.2); PRO B-TYPE NATRIUR PEPT,BNPPRO 1487 pg/mL (5-125); PROTEIN TOTAL,TP 4.9 g/dL (6.4-8.2); SODIUM,NA 137 mmol/L (140-148)
[2023-06-08 06:30] LABS: ANION GAP 11.9 mmol/L (5.0-14.0)
[2023-06-08] MEDS: Albumin Human 25 GM in Premix Bag 1 BAG IV ONE (12:16)
[2023-06-09] MEDS: Sodium Chloride 0.9% 500 ML IV ONE (23:57)
[2023-06-11] MEDS: Ondansetron 4 MG Tab.DIS PO PRN (06:45)
[2023-06-12 05:31] LABS: HEMATOCRIT 23.9 % (38.4-49.7); HEMOGLOBIN 8.2 g/dL (12.9-16.9); MEAN CORPUSCULAR HEMOGLOBIN 31.3 pg (31.6-35.5); MEAN CORPUSCULAR HGB CONC 34.3 g/dL (31.6-35.5); MEAN CORPUSCULAR VOLUME 91.2 fL (81.4-99.0); RED BLOOD CELL COUNT 2.62 M/uL (4.14-5.76); WHITE BLOOD CELL COUNT,WBC 4.3 K/uL (3.2-11.0)
[2023-06-12 05:43] LABS: CALCIUM 7.7 mg/dL (8.5-10.1); EST CRCL DRUG DOSING (CG) 70.7 mL/min; POTASSIUM,K 4.5 mmol/L (3.6-5.2)
[2023-06-12 05:48] LABS: ANION GAP 8.5 mmol/L (5.0-14.0)
== END 2023-06-14 13:25 | disposition home health service (06) | DRG 194 ==
LOC: JP.ED 15:18 → JP.MS 17:57
PROVIDERS: ADMIT Hospitalist; ATTEND Internal Medicine
DX: J18.9 Pneumonia, unspecified organism (principal); C84.48 Peripheral T-cell lymphoma, not elsewhere classified, lymph nodes of multiple sites; J90 Pleural effusion, not elsewhere classified; R18.0 Malignant ascites; E87.6 Hypokalemia; I10 Essential (primary) hypertension; R06.02 Shortness of breath; E03.9 Hypothyroidism, unspecified; K21.9 Gastro-esophageal reflux disease without esophagitis; Z86.16 Personal history of COVID-19; M10.9 Gout, unspecified; H91.90 Unspecified hearing loss, unspecified ear; M19.90 Unspecified osteoarthritis, unspecified site; E83.42 Hypomagnesemia; R62.7 Adult failure to thrive; Z79.890 Hormone replacement therapy; Z98.890 Other specified postprocedural states; Z79.899 Other long term (current) drug therapy; Z90.49 Acquired absence of other specified parts of digestive tract; Z87.891 Personal history of nicotine dependence
CPT/HCPCS: 0241U; 36415; 71045; 71045-26; 76705; 76705-26; 80048; 80053; 81001; 83605; 83735; 83880; 84145; 84443; 85025; 85027; 86140; 87086; 90694; 93005; 93010; 96365; 96366; 97110-GP; 97161-GP; 97165-GO; 97530-GP; 97535-GO; 99285; 99285-25; A9270-GY; C8929; J0696; J1650; J1940; J3475; J3480; J3490; J7040; P9047; Q0162

== ENCOUNTER 2023-10-15 08:01 | Emergency (ER) | payer MEDICARE ==
[2023-10-15 08:59] LABS: BASOPHILS PERCENT AUTO 0.2 % (0.1-1.3); EOSINOPHILS ABSOLUTE AUTO 0.03 K/uL (0.00-0.40); EOSINOPHILS PERCENT AUTO 0.5 % (0.0-5.4); HEMATOCRIT 30.2 % (38.4-49.7); HEMOGLOBIN 10.8 g/dL (12.9-16.9); IMMATURE GRAN PERCENT AUTO 0.4 % (0.0-0.7); LYMPHOCYTES ABSOLUTE AUTO 1.12 K/uL (0.8-3.3); LYMPHOCYTES PERCENT AUTO 20.5 % (11.4-47.7); MEAN CORPUSCULAR HEMOGLOBIN 32.2 pg (31.6-35.5); MEAN CORPUSCULAR HGB CONC 35.8 g/dL (31.6-35.5); MEAN CORPUSCULAR VOLUME 90.1 fL (81.4-99.0); MONOCYTES ABSOLUTE AUTO 0.49 K/uL (0.20-0.90); NEUTROPHILS PERCENT AUTO 69.4 % (40.0-78.1); PLATELET COUNT,PLT 145 K/uL (130-375); RED BLOOD CELL COUNT 3.35 M/uL (4.14-5.76); WHITE BLOOD CELL COUNT,WBC 5.5 K/uL (3.2-11.0)
[2023-10-15 09:04] LABS: BASOPHILS ABSOLUTE AUTO 0.01 K/uL (0.00-0.10); IMMATURE GRAN ABSOLUTE AUTO 0.02 K/uL (0.00-0.23)
[2023-10-15 09:16] LABS: INR 1.2; PROTHROMBIN TIME 12.2 sec (9.2-10.6); PTT,PARTIAL THROMBOPLSTIN TIME 29.4 sec (21.8-27.3)
[2023-10-15 09:28] LABS: A/G RATIO 0.6 (1.2-2.2); ALANINE AMINOTRANSFERASE,ALT 25 U/L (12-78); ALBUMIN 1.9 g/dL (3.4-5.0); ALKALINE PHOSPHATASE 130 U/L (46-116); ASPARTATE AMNIOTRANSFERASE,AST 52 U/L (15-37); BILIRUBIN TOTAL 0.9 mg/dL (0.2-1.0); BLOOD UREA NITROGEN,BUN 6 mg/dL (7-18); CALCIUM 8.2 mg/dL (8.5-10.1); CARBON DIOXIDE,CO2 27 mmol/L (21-32); CHLORIDE,CL 102 mmol/L (100-108); ESTIMATED GFR 82 mL/min (>60); GLUCOSE RANDOM 91 mg/dL (74-106); MAGNESIUM 1.2 mg/dL (1.8-2.4); PHOSPHORUS 2.4 mg/dL (2.5-4.9); POTASSIUM,K 3.6 mmol/L (3.6-5.2); PROTEIN TOTAL,TP 5.3 g/dL (6.4-8.2); SODIUM,NA 135 mmol/L (140-148); TROPONIN I HIGH SENSITIVITY 9.7 pg/mL (<=60.3); TSH ULTRASENSITIVE 13.945 uIU/mL (0.358-3.740)
[2023-10-15 09:36] LABS: ANION GAP 9.6 mmol/L (5.0-14.0)
== END 2023-10-15 14:23 | disposition home or self-care (01) ==
LOC: JP.ED 08:01
DX: E03.9 Hypothyroidism, unspecified (principal); E46 Unspecified protein-calorie malnutrition; Z79.899 Other long term (current) drug therapy; Z79.890 Hormone replacement therapy; I10 Essential (primary) hypertension; K21.9 Gastro-esophageal reflux disease without esophagitis; Z90.49 Acquired absence of other specified parts of digestive tract; Z87.891 Personal history of nicotine dependence; Z68.25 Body mass index [BMI] 25.0-25.9, adult
CPT/HCPCS: 36415; 70450; 70450-26; 71046; 71046-26; 80053; 83605; 83735; 83880; 84100; 84443; 84484; 85025; 85610; 85730; 93005; 93010; 99284; 99285

== ENCOUNTER 2023-11-18 01:16 | Observation (INO) | payer MEDICARE ==
[2023-11-18 01:54] LABS: ALANINE AMINOTRANSFERASE,ALT 14 U/L (12-78); ALBUMIN 2.5 g/dL (3.4-5.0); ALKALINE PHOSPHATASE 206 U/L (46-116); ASPARTATE AMNIOTRANSFERASE,AST 40 U/L (15-37); BASOPHILS ABSOLUTE AUTO 0.04 K/uL (0.00-0.10); BASOPHILS PERCENT AUTO 0.6 % (0.1-1.3); BILIRUBIN TOTAL 0.8 mg/dL (0.2-1.0); BLOOD UREA NITROGEN,BUN 11 mg/dL (7-18); CALCIUM 8.2 mg/dL (8.5-10.1); CARBON DIOXIDE,CO2 27 mmol/L (21-32); CHLORIDE,CL 106 mmol/L (100-108); CREATININE 0.9 mg/dL (0.8-1.3); EOSINOPHILS ABSOLUTE AUTO 0.07 K/uL (0.00-0.40); ESTIMATED GFR 93 mL/min (>60); GLUCOSE RANDOM 93 mg/dL (74-106); HEMATOCRIT 31.8 % (38.4-49.7); IMMATURE GRAN ABSOLUTE AUTO 0.01 K/uL (0.00-0.23); IMMATURE GRAN PERCENT AUTO 0.1 % (0.0-0.7); LYMPHOCYTES ABSOLUTE AUTO 2.18 K/uL (0.8-3.3); LYMPHOCYTES PERCENT AUTO 31.6 % (11.4-47.7); MEAN CORPUSCULAR HGB CONC 34.6 g/dL (31.6-35.5); MEAN CORPUSCULAR VOLUME 95.5 fL (81.4-99.0); MONOCYTES ABSOLUTE AUTO 0.83 K/uL (0.20-0.90); NEUTROPHILS ABSOLUTE AUTO 3.77 K/uL (1.0-7.6); NEUTROPHILS PERCENT AUTO 54.7 % (40.0-78.1); PLATELET COUNT,PLT 140 K/uL (130-375); PROTEIN TOTAL,TP 5.1 g/dL (6.4-8.2); RED BLOOD CELL COUNT 3.33 M/uL (4.14-5.76); SODIUM,NA 137 mmol/L (140-148); WHITE BLOOD CELL COUNT,WBC 6.9 K/uL (3.2-11.0)
[2023-11-18] MEDS ORDERED: Ondansetron 4 MG/2 ML SDV IV PRN (02:39)
[2023-11-18] MEDS ORDERED: Ondansetron 4 MG Tab.DIS PO PRN (02:39)
[2023-11-18] MEDS ORDERED: Melatonin 3 MG Tab PO PRN (02:39)
[2023-11-18 03:02] LABS: INR 1.2; PROTHROMBIN TIME 12.2 sec (9.2-10.6)
[2023-11-18] MEDS ORDERED: Pantoprazole 40 MG Tab.CR PO SCH (09:00)
[2023-11-18] MEDS: Aspirin 81 MG Tab.Chew PO SCH (11:13)
[2023-11-18] MEDS: Allopurinol 100 MG Tab PO SCH (11:13)
[2023-11-18] MEDS: Pantoprazole 40 MG Tab.CR PO SCH (11:13)
[2023-11-18] MEDS: Levothyroxine 25 MCG, Levothyroxine 50 MCG PO SCH (11:13)
[2023-11-18] MEDS: Midodrine 5 MG Tab PO SCH (11:14)
[2023-11-18] MEDS: Metoprolol Succinate 25 MG Tab.ER PO SCH (11:14)
[2023-11-18 17:46] LABS: BODY FLUID TYPE PERITONEAL FLUID
[2023-11-18 18:05] LABS: AMYLASE,BODY FLUID 13 U/L; GLUCOSE,BODY FLUID 103 mg/dL; LIPASE,BODY FLUID 22 U/L
[2023-11-18 18:07] LABS: AMYLASE BODY FLUID TYPE PERITONEAL FLUID; PROTEIN,BODY FLUID < 2 g/dL
[2023-11-18 18:14] LABS: RBC,BODY FLUID 89 /ul; WBC BODY FLUID 94 /ul
[2023-11-18 18:15] LABS: MONONUCLEAR, BODY FLUID 92 %; POLYMORPHONUCLEAR, BODY FLUID 8 %
[2023-11-18] MEDS: Acetaminophen 325 MG Tab PO PRN (20:26)
[2023-11-19 05:21] LABS: HEMATOCRIT 29.5 % (38.4-49.7); HEMOGLOBIN 9.7 g/dL (12.9-16.9); MEAN CORPUSCULAR HEMOGLOBIN 32.2 pg (31.6-35.5); MEAN CORPUSCULAR HGB CONC 32.9 g/dL (31.6-35.5); RED BLOOD CELL COUNT 3.01 M/uL (4.14-5.76)
[2023-11-19 06:00] LABS: ANION GAP 7.7 mmol/L (5.0-14.0); CALCIUM 7.9 mg/dL (8.5-10.1); CREATININE 0.9 mg/dL (0.8-1.3); EST CRCL DRUG DOSING (CG) 70.46 mL/min; MAGNESIUM 1.2 mg/dL (1.8-2.4)
[2023-11-19] MEDS: Levothyroxine 100 MCG Tab PO SCH (07:20)
[2023-11-19] MEDS ORDERED: Levothyroxine 25 MCG Tab PO SCH (07:30)
[2023-11-19] MEDS ORDERED: Non-Formulary Medication 1 Each (Levothyroxine [Levothyroxine] 75 MCG Tablet) PO SCH (07:30)
[2023-11-19] MEDS: Magnesium Sulfate/Water 2 GM in Premix Bag 1 BAG IV SCH (09:40)
[2023-11-19] MEDS: Magnesium Oxide 400 MG Tab PO SCH (09:43)
[2023-11-19] MEDS: Spironolactone 25 MG Tab PO SCH (20:12)
[2023-11-20 05:23] LABS: CALCIUM 7.8 mg/dL (8.5-10.1); CREATININE 0.9 mg/dL (0.8-1.3); POTASSIUM,K 3.8 mmol/L (3.6-5.2)
[2023-11-20 05:36] LABS: ANION GAP 11.8 mmol/L (5.0-14.0)
[2023-11-20] MEDS: Furosemide 20 MG Tab PO SCH (08:15)
== END 2023-11-20 12:50 | disposition home or self-care (01) ==
LOC: JP.ED 01:16 → JP.MS 02:03
PROVIDERS: ADMIT Registered Nurse; ATTEND Hospitalist
DX: K70.31 Alcoholic cirrhosis of liver with ascites (principal); R60.0 Localized edema; R06.02 Shortness of breath; I10 Essential (primary) hypertension; R55 Syncope and collapse; K21.9 Gastro-esophageal reflux disease without esophagitis; M19.90 Unspecified osteoarthritis, unspecified site; E03.9 Hypothyroidism, unspecified; E78.5 Hyperlipidemia, unspecified; M10.9 Gout, unspecified; F10.10 Alcohol abuse, uncomplicated; Z87.891 Personal history of nicotine dependence; Z79.82 Long term (current) use of aspirin; Z79.899 Other long term (current) drug therapy; Z79.890 Hormone replacement therapy; Z90.49 Acquired absence of other specified parts of digestive tract
CPT/HCPCS: 36415; 80048; 80053; 80307; 82140; 82150; 82945; 83735; 84157; 84443; 85025; 85027; 85610; 87070; 87205; 89050; 96365; 96366; 97161-GP; 97530-GP; 99223; 99232; 99238; 99285; A9270-GY; G0378; J3475

== ENCOUNTER 2024-05-21 13:55 | Emergency (ER) | payer MEDICARE, MEDICAID | END 2024-05-21 17:39 | disposition home or self-care (01) | LOC: JP.ED 13:55 | DX: S70.02XA Contusion of left hip, initial encounter (principal); I10 Essential (primary) hypertension; K21.9 Gastro-esophageal reflux disease without esophagitis; E03.9 Hypothyroidism, unspecified; Z79.82 Long term (current) use of aspirin; Z79.890 Hormone replacement therapy; Z79.899 Other long term (current) drug therapy; Z90.49 Acquired absence of other specified parts of digestive tract; W01.198A Fall on same level from slipping, tripping and stumbling with subsequent striking against other object, initial encounter; Y92.095 Swimming-pool of other non-institutional residence as the place of occurrence of the external cause | CPT/HCPCS: 70450; 70450-26; 72192; 72192-26; 73502-26-LT; 73502-LT; 76377; 99283; 99284 ==

== ENCOUNTER 2024-09-27 14:08 | Emergency (ER) | payer MEDICAID, MEDICARE, OTHER | END 2024-09-27 16:25 | disposition home or self-care (01) | LOC: JP.ED 14:08 | DX: S40.011A Contusion of right shoulder, initial encounter (principal); I10 Essential (primary) hypertension; E03.9 Hypothyroidism, unspecified; K21.9 Gastro-esophageal reflux disease without esophagitis; Z79.899 Other long term (current) drug therapy; Z79.890 Hormone replacement therapy; W18.30XA Fall on same level, unspecified, initial encounter | CPT/HCPCS: 73030-RT; 99283 ==